=== PATIENT | female | born 1960 | race African-American/Black ===

== ENCOUNTER 2020-11-10 19:57 | Emergency (ER) | payer SELFPAY ==
[~2020-11-10] VITALS: Ht 170.2 cm; Wt 136.0 kg
[~2020-11-10 19:57] MED LIST: AMIODARONE HCL 50MG/ML 3ML VIAL IV ONE; ATROPINE SULFATE 1MG/10ML SYR ONE; CALCIUM CHLORIDE 1GM/10ML SYR IV ONE; DEXTROSE 50% WATER 50ML SYRINGE IV ONE; EPINEPHRINE 0.1MG/ML (1:10,000) 10ML SYR ONE; ETOMIDATE 2MG/ML 10ML VIAL IV ONE; SODIUM BICARBONATE 8.4% 1 MEQ/ML 50ML SYR IV ONE; SUCCINYLCHOLINE CHLORIDE 200MG/10ML IV ONE
[2020-11-10] MEDS ORDERED: SODIUM CHLORIDE 0.9% 1000ML BAG (SEPSIS BOLUS) IV ONE (20:30)
[2020-11-10] MEDS ORDERED: LORAZEPAM 2MG/ML CPJ IV ONE (20:30)
[2020-11-10] MEDS ORDERED: CEFTRIAXONE 1 G PREMIX 50 ML IV ONE (20:30)
[2020-11-10] MEDS ORDERED: AZITHROMYCIN 500 MG in DEXT 5% WATER 250 ML IV ONE (20:30)
[2020-11-10] MEDS ORDERED: NOREPINEPHRINE 8 MG in DEXT 5% WATER 242 ML IV PRN (20:45)
[2020-11-10] MEDS ORDERED: FENTANYL CITRATE/PF 50MCG/ML 2ML VIAL IV ONE (20:45)
[2020-11-10] MEDS ORDERED: MIDAZOLAM HCL 100 MG in DEXT 5% WATER 80 ML IV ONE (20:45)
[2020-11-10 20:51] LABS: BASOPHILS % 0.5 % (0.0-2.0); HEMATOCRIT. 34.8 % (36.0-48.0); HEMOGLOBIN. 10.8 g/dL (12.0-16.0); LYMPHOCYTES % 51.4 % (20.0-50.0); MEAN CORPUSCULAR HEMOGLOBIN 24.6 pg (28.0-32.0); MEAN CORPUSCULAR VOLUME 79.1 fL (81.0-99.0); MEAN PLATELET VOLUME 8.2 fl (7.4-10.4); MONOCYTES % 6.4 % (2.0-8.0); NEUTROPHILS % 39.7 % (40.0-76.0); PLATELET 182 x1000/uL (130-400); RED CELL DISTRIBUTION WIDTH 16.4 % (11.6-14.6)
[2020-11-10 20:54] LABS: CHLORIDE 105 mEq/L (98-107)
[2020-11-10 20:58] LABS: ETHANOL BLOOD < 10 mg/dL
[2020-11-10] MEDS ORDERED: NOREPINEPHRINE 8MG/250ML PMX 250 ML IV NR (21:00)
[2020-11-10] MEDS ORDERED: MIDAZOLAM HCL 100 MG in SODIUM CHLORIDE 0.9% 80 ML IV NR (21:00)
[2020-11-10 21:05] LABS: D-DIMER 13.65 mg/L FEU (<0.50); INR 1.1; PARTIAL THROMBOPLASTIN TIME 28.8 sec (23.4-31.0); PROTHROMBIN TIME 11.6 sec (9.6-11.0)
[2020-11-10] MEDS ORDERED: AMIODARONE HCL 900 MG in DEXT 5% WATER 482 ML IV STA (22:36)
[2020-11-10] MEDS ORDERED: AMIODARONE HCL 900 MG in DEXT 5% WATER 482 ML IV NR (22:45)
[2020-11-10] MEDS ORDERED: ASPIRIN 300MG SUPP PR ONE (23:15)
[2020-11-10] MEDS ORDERED: ENOXAPARIN 150MG/ML SYR SUBCUT ONE (23:15)
[2020-11-10] MEDS ORDERED: POTASSIUM CHLORIDE 20MEQ/PACKET NG ONE (23:15)
[2020-11-10 23:24] VITALS: BP 105/76
[2020-11-10 23:46] LABS: BG BASE EXCESS -21.9 mmol/L (-2.0-2.0); BG CARBOXYHEMOGLOBIN 0.2 % (0.5-1.5); BG DEOXYHEMOGLOBIN 3.3 % (0.0-5.0); BG FRACTION INSPIRED OXYGEN 100; BG HCO3 ACT 9.5 mmol/L (22.0-26.0); BG METHEMOGLOBIN 0.4 % (0.0-1.5); BG OXYGEN SATURATION 96.7 % (92.0-98.5); BG OXYHEMOGLOBIN 96.1 % (94.0-97.0); BG PCO2 45.6 mmHg (35.0-45.0); BG PH 6.935 (7.350-7.450); BG PO2 145.5 mmHg (75.0-100.0); BG SAMPLE SITE RIGHT FEMORAL; BG TOTAL HEMOGLOBIN 9.8 g/dL (12.0-18.0); BG VENT MODE VENT - AC
== END 2020-11-11 04:38 ==
LOC: ER 19:57 → ENRESERV 11-11 00:04 → CANRESERV 11-11 00:04 → ER 11-11 04:38 → CANBEDREQ 11-11 07:43
DX: I46.9 Cardiac arrest, cause unspecified (principal); R07.9 Chest pain, unspecified; J96.90 Respiratory failure, unspecified, unspecified whether with hypoxia or hypercapnia
CPT/HCPCS: 31500; 36415; 36556; 36600; 71045; 80053; 80320; 82375; 82805; 82962; 83605; 83880; 84145; 84484; 85025; 85379; 85610; 85730; 87040; 93005; 94002; 96365; 96372; 96375; 99291; J0282; J0330; J0456; J0461; J0696; J1650; J2060; J2250; J3490; J7030; J7050; J7060; Z7610; A6261; G0480